=== PATIENT | female | born 1930 | race Caucasian/White ===

== ENCOUNTER 2019-03-28 08:35 | Emergency (ER) | payer MEDICARE, MEDICAID ==
[2019-03-28] MEDS ORDERED: Acetaminophen 325 MG TAB ONE (09:33)
[2019-03-28 10:07] LABS: #Eosinphils 0.2 thou/uL (0.0-0.7); #Lymphocytes 1.9 thou/uL (1.20-3.40); #Monocytes 0.8 thou/uL (0.11-0.59); #Neutrophils 4.9 thou/uL (1.40-6.50); %Basophils 0.5 % (0.0-1.0); %Eosinophils 2.5 % (0.0-10.0); %Lymphocytes 24.5 % (21.0-51.0); %Monocytes 9.9 % (0.0-10.0); %Neutrophils 62.7 % (42.0-75.0); Hemoglobin 12.5 g/dL (12.0-16.0); Mean Corpuscular HGB CONC 33.1 g/dL (32.0-36.0); Mean Corpuscular Hemoglobin 30.2 pg (27.0-31.0); Mean Corpuscular Volume 91.3 fL (78.0-98.0); Mean Platelet Volume 7.4 fL (7.4-10.4); Platelet Count 272 thou/uL (130-400); RBC Distribution Width 11.8 % (11.5-14.5); Red Blood Cell (RBC) Count 4.14 mill/uL (4.20-5.40); White Blood Cell (WBC) Count 7.8 thou/uL (4.8-10.8)
--- NOTE | 2019-03-28 10:15 | ULT ---
ULTRASOUND DOPPLER DUPLEX VENOUS LEFT LOWER EXTREMITY: DATE: 03/28/2019 HISTORY: 88-year-old female with left lower extremity pain TECHNIQUE: Grayscale, color-flow, and spectral analysis, of major veins of left lower extremity. FINDINGS: There is demonstration of blood flow with normal compressibility, of the left common femoral, profund a femoral, greater saphenous, femoral, popliteal, and posterior tibial, veins. IMPRESSION: Negative. No deep venous thrombosis of left lower extremity.
[2019-03-28 10:29] LABS: ALT (SGPT) Less than 7 U/L (8-55); AST (SGOT) 14 U/L (5-34); Albumin 3.1 g/dL (3.4-4.8); Alkaline Phosphatase 97 U/L (40-110); BUN (Urea Nitrogen) 11 mg/dL (9.8-20.1); Bilirubin, Total 0.7 mg/dL (0.2-1.2); Calc. Creatinine Clearance 0 mL/min (70-130); Calcium 9.7 mg/dL (7.8-10.44); Carbon Dioxide 23 mmol/L (23-31); Chloride 103 mmol/L (98-107); Estimated GFR-MDRD 71; Globulin 4.4 g/dL (2.4-3.5); Glucose 100 mg/dL (83-110); Potassium 3.9 mmol/L (3.5-5.1); Protein, Total 7.5 g/dL (6.0-8.3); Sodium 138 mmol/L (136-145)
[2019-03-28 10:34] LABS: Anion Gap 16 mmol/L (10-20)
[2019-03-28] MEDS ORDERED: Ketorolac Tromethamine 30 MG/ML VIAL ONE (11:03)
--- NOTE | 2019-03-28 11:10 | RAD ---
PORTABLE CHEST: HISTORY: Cough. COMPARISON: 10/29/2015. FINDINGS: The lungs appear clear of infiltrate. Heart size within normal range. Aortic calcification is noted . Vasculature normal. IMPRESSION: No acute lung process. POS: [facility]
== END 2019-03-28 12:41 | disposition home or self-care (01) ==
LOC: ERS 08:35
DX: M25.462 Effusion, left knee (principal); L89.152 Pressure ulcer of sacral region, stage 2; R05 Cough; K21.9 Gastro-esophageal reflux disease without esophagitis; F32.9 Major depressive disorder, single episode, unspecified; Z86.718 Personal history of other venous thrombosis and embolism
CPT/HCPCS: 36415; 71045; 80053; 85025; 94640; 94760; 96374; J1885; J7620